=== PATIENT | male | born 1985 | race Hispanic/Latino ===

== ENCOUNTER 2019-10-19 12:48 | Emergency (ER) | payer SELFPAY ==
[~2019-10-19] VITALS: Ht 180.3 cm; Wt 129.5 kg
[2019-10-19] MEDS ORDERED: PREDNISONE50 MG PO (13:22)
[2019-10-19] MEDS ORDERED: NAPROXEN375 MG PO (13:22)
[2019-10-19 13:30] VITALS: BP 130/82
== END 2019-10-19 13:30 | disposition home or self-care (01) | DRG 554 ==
LOC: ED 12:48
DX: M10.09 Idiopathic gout, multiple sites (principal); F17.210 Nicotine dependence, cigarettes, uncomplicated

== ENCOUNTER 2021-11-27 11:50 | Emergency (ER) | payer SELFPAY ==
[~2021-11-27] VITALS: Ht 180.3 cm; Wt 113.0 kg
[~2021-11-27 11:50] MED LIST: NAPROXEN375 MG PO; PREDNISONE50 MG PO
[2021-11-27 12:01] VITALS: BP 137/67
[2021-11-27] MEDS ORDERED: NAPROXEN500 MG PO (12:50)
== END 2021-11-27 13:30 | disposition home or self-care (01) | DRG 563 ==
LOC: ED 11:50
DX: S93.691A Other sprain of right foot, initial encounter (principal); X50.1XXA Overexertion from prolonged static or awkward postures, initial encounter